=== PATIENT | female | born 1980 | race Caucasian/White ===

== ENCOUNTER 2016-08-16 20:45 | Emergency (ER) | payer MEDICARE, OTHER ==
[~2016-08-16] VITALS: Ht 165.1 cm; Wt 54.4 kg
[~2016-08-16 20:45] MED LIST: NO MEDS
[2016-08-16] MEDS ORDERED: WATER FOR INJECTION,STERILE 10 ML ONE (21:44)
[2016-08-16] MEDS ORDERED: OLANZAPINE 10 MG VIAL IM ONE ×2 (21:44→22:00)
[2016-08-16 21:46] LABS: BASOPHILS # (AUTO) 0.4 /CMM (0.0-0.2); BASOPHILS % (AUTO) 4.5 % (0.0-2.0); DIFF TOTAL % 100 %; EOSINOPHILS % (AUTO) 0.4 % (0.0-6.0); HEMATOCRIT 37 % (33-45); HEMOGLOBIN 12.6 g/dL (11.5-14.8); LYMPHOCYTES % (AUTO) 33.3 % (20.0-44.0); MEAN CORPUSCULAR HEMOGLOBIN 29 PG (26.0-33.0); MEAN CORPUSCULAR HGB CONC 34 g/dl (31.0-36.0); MEAN CORPUSCULAR VOLUME 83 fL (82-100); MONOCYTES # (AUTO) 0.7 /CMM (0.1-1.30); MONOCYTES % (AUTO) 7.8 % (2.0-12.0); PLATELET COUNT (AUTO) 251 /CMM (150-450); WHITE BLOOD COUNT (AUTO) 9.1 K/uL (4.3-11.0)
[2016-08-16 22:05] LABS: KETONES,URINE Negative (NEGATIVE); LEUKOCYTE ESTERASE ,URINE Negative (NEGATIVE)
[2016-08-16 22:09] LABS: ADD UA MICROSCOPIC YES
[2016-08-16 22:13] LABS: ADD URINE CULTURE NO; WBC,URINE 0-2 /HPF (0-3)
[2016-08-16 22:21] LABS: CANNABINOID, URINE POSITIVE (NEGATIVE); PHENCYCLIDINE SCREEN,URINE NEGATIVE (NEGATIVE)
[2016-08-16 22:31] LABS: CALCIUM, SERUM 8.2 mg/dL (8.5-10.1); CREATININE 0.7 mg/dL (0.6-1.3); POTASSIUM 3.5 mmol/L (3.5-5.1)
[2016-08-16 22:37] LABS: ALBUMIN 3.5 g/dL (3.4-5.0); BILIRUBIN,TOTAL 0.1 mg/dL (0.2-1.0)
[2016-08-16 22:38] LABS: INDIRECT BILIRUBIN 0.1 mg/dL (0.0-1.1)
[2016-08-17 04:51] VITALS: BP 102/51
== END 2016-08-17 05:50 | disposition home or self-care (01) ==
LOC: ER 20:52
DX: F10.10 Alcohol abuse, uncomplicated (principal); F12.10 Cannabis abuse, uncomplicated; R45.1 Restlessness and agitation; F25.9 Schizoaffective disorder, unspecified; F17.200 Nicotine dependence, unspecified, uncomplicated; Z88.8 Allergy status to other drugs, medicaments and biological substances
CPT/HCPCS: 36415; 70450-TC; 80048-TC; 80076-TC; 80305; 81000-TC; 84703-TC; 85025-TC; A4606; G6038-TC; G6039-TC; G6040-TC; J3490; Z7610

== ENCOUNTER 2016-08-18 22:59 | Emergency (ER) | payer MEDICARE, OTHER ==
[~2016-08-18] VITALS: Ht 165.1 cm; Wt 56.7 kg
[2016-08-18] MEDS ORDERED: OLANZAPINE 10 MG VIAL IM ONE ×2 (23:15→23:30)
[2016-08-18] MEDS ORDERED: WATER FOR INJECTION,STERILE 10 ML ONE (23:15)
[2016-08-18 23:29] LABS: BASOPHILS % (AUTO) 0.2 % (0.0-2.0); DIFF TOTAL % 100 %; EOSINOPHILS % (AUTO) 0.3 % (0.0-6.0); HEMATOCRIT 40 % (33-45); HEMOGLOBIN 13.2 g/dL (11.5-14.8); LYMPHOCYTES # (AUTO) 3.6 /CMM (0.8-4.8); LYMPHOCYTES % (AUTO) 27.3 % (20.0-44.0); MEAN CORPUSCULAR HEMOGLOBIN 28 PG (26.0-33.0); MEAN CORPUSCULAR HGB CONC 33 g/dl (31.0-36.0); MEAN CORPUSCULAR VOLUME 84 fL (82-100); MONOCYTES # (AUTO) 0.8 /CMM (0.1-1.30); MONOCYTES % (AUTO) 5.8 % (2.0-12.0); NEUTROPHILS # (AUTO) 8.8 /CMM (1.8-8.9); NEUTROPHILS % (AUTO) 66.4 % (43.0-81.0); PLATELET COUNT (AUTO) 289 /CMM (150-450); RED BLOOD CELL COUNT(AUTO) 4.72 MIL/uL (4.0-5.2); WHITE BLOOD COUNT (AUTO) 13.3 K/uL (4.3-11.0)
[2016-08-18 23:40] LABS: CALCIUM, SERUM 8.4 mg/dL (8.5-10.1); CREATININE 0.6 mg/dL (0.6-1.3); POTASSIUM 3.3 mmol/L (3.5-5.1)
[2016-08-18 23:45] LABS: ALBUMIN 3.6 g/dL (3.4-5.0); BILIRUBIN,TOTAL 0.2 mg/dL (0.2-1.0); TOTAL PROTEIN, SERUM 7.2 g/dL (6.4-8.2)
[2016-08-18 23:46] LABS: INDIRECT BILIRUBIN 0.2 mg/dL (0.0-1.1)
[2016-08-19 06:06] VITALS: BP 135/72
== END 2016-08-19 06:07 | disposition home or self-care (01) ==
LOC: ER 23:00
DX: R46.89 Other symptoms and signs involving appearance and behavior (principal); F10.129 Alcohol abuse with intoxication, unspecified; F25.9 Schizoaffective disorder, unspecified; F17.200 Nicotine dependence, unspecified, uncomplicated; Z88.8 Allergy status to other drugs, medicaments and biological substances
CPT/HCPCS: 36415; 80048-TC; 80076-TC; 85025-TC; A4606; G0480; G6039-TC; J3490; Z7610

== ENCOUNTER 2016-09-14 15:13 | Emergency (ER) | payer SELFPAY ==
[~2016-09-14] VITALS: Ht 157.5 cm; Wt 63.5 kg
[2016-09-14] MEDS ORDERED: WATER FOR INJECTION,STERILE 10 ML ONE (15:16)
[2016-09-14] MEDS ORDERED: OLANZAPINE 10 MG VIAL IM ONE ×2 (15:16→15:30)
[2016-09-14] MEDS ORDERED: IV NS 0.9% 1,000 ML BAG IV ONE (15:30)
[2016-09-14 15:44] LABS: BASOPHILS # (AUTO) 0.1 /CMM (0.0-0.2); DIFF TOTAL % 100 %; EOSINOPHILS # (AUTO) 0.4 /CMM (0.0-0.7); EOSINOPHILS % (AUTO) 3.7 % (0.0-6.0); HEMATOCRIT 38 % (33-45); HEMOGLOBIN 12.9 g/dL (11.5-14.8); LYMPHOCYTES # (AUTO) 3.5 /CMM (0.8-4.8); LYMPHOCYTES % (AUTO) 33.1 % (20.0-44.0); MEAN CORPUSCULAR HEMOGLOBIN 29 PG (26.0-33.0); MEAN CORPUSCULAR HGB CONC 34 g/dl (31.0-36.0); MEAN CORPUSCULAR VOLUME 86 fL (82-100); MONOCYTES # (AUTO) 0.5 /CMM (0.1-1.30); MONOCYTES % (AUTO) 5.2 % (2.0-12.0); NEUTROPHILS # (AUTO) 6.1 /CMM (1.8-8.9); PLATELET COUNT (AUTO) 310 /CMM (150-450); RED BLOOD CELL COUNT(AUTO) 4.45 MIL/uL (4.0-5.2); WHITE BLOOD COUNT (AUTO) 10.6 K/uL (4.3-11.0)
[2016-09-14 15:54] LABS: CALCIUM, SERUM 8.5 mg/dL (8.5-10.1); CREATININE 0.8 mg/dL (0.6-1.3); POTASSIUM 3.6 mmol/L (3.5-5.1)
[2016-09-14] MEDS ORDERED: IV NS 0.9% 1,000 ML ONE (16:11)
[2016-09-14] MEDS ORDERED: IV SET PRIMARY 1 EA INFUS.SET MC ONE (16:11)
[2016-09-14 18:49] VITALS: BP 110/63
== END 2016-09-14 18:51 | disposition home or self-care (01) ==
LOC: EDBD → MERGE 15:13 → ER 15:13
DX: R45.1 Restlessness and agitation (principal)
CPT/HCPCS: 36415; 80048; 85025; 93005; 96360; 96372; 99285; A4606; G0480; J3490; J7030; Z7610

== ENCOUNTER 2016-09-15 11:14 | Emergency (ER) | payer MEDICARE, OTHER ==
[~2016-09-15] VITALS: Ht 165.1 cm; Wt 65.8 kg
[2016-09-15] MEDS ORDERED: HALOPERIDOL LACTATE INJ 5 MG/ML VIAL ONE (11:27)
[2016-09-15] MEDS ORDERED: diphenhydrAMINE HCL 50 MG/ML VIAL ONE (11:27)
[2016-09-15] MEDS ORDERED: LORAZEPAM INJ 2 MG/ML VIAL ONE (11:27)
[2016-09-15] MEDS ORDERED: HALOPERIDOL LACTATE INJ 5 MG/ML VIAL IM ONE (11:30)
[2016-09-15] MEDS ORDERED: diphenhydrAMINE HCL 50 MG/ML VIAL IM ONE (11:30)
[2016-09-15] MEDS ORDERED: LORAZEPAM INJ 2 MG/ML VIAL IM ONE (11:30)
[2016-09-15 12:18] LABS: BASOPHILS # (AUTO) 0.1 /CMM (0.0-0.2); BASOPHILS % (AUTO) 0.8 % (0.0-2.0); DIFF TOTAL % 100 %; EOSINOPHILS # (AUTO) 0.2 /CMM (0.0-0.7); EOSINOPHILS % (AUTO) 1.9 % (0.0-6.0); HEMATOCRIT 42 % (33-45); HEMOGLOBIN 13.9 g/dL (11.5-14.8); LYMPHOCYTES # (AUTO) 3.5 /CMM (0.8-4.8); LYMPHOCYTES % (AUTO) 29.8 % (20.0-44.0); MEAN CORPUSCULAR HEMOGLOBIN 28 PG (26.0-33.0); MEAN CORPUSCULAR HGB CONC 33 g/dl (31.0-36.0); MEAN CORPUSCULAR VOLUME 86 fL (82-100); MONOCYTES # (AUTO) 0.5 /CMM (0.1-1.30); MONOCYTES % (AUTO) 4.4 % (2.0-12.0); NEUTROPHILS # (AUTO) 7.5 /CMM (1.8-8.9); NEUTROPHILS % (AUTO) 63.1 % (43.0-81.0); PLATELET COUNT (AUTO) 328 /CMM (150-450); RED BLOOD CELL COUNT(AUTO) 4.89 MIL/uL (4.0-5.2); WHITE BLOOD COUNT (AUTO) 11.8 K/uL (4.3-11.0)
[2016-09-15 12:25] LABS: CALCIUM, SERUM 8.8 mg/dL (8.5-10.1); CREATININE 0.7 mg/dL (0.6-1.3); POTASSIUM 3.8 mmol/L (3.5-5.1)
[2016-09-15 12:31] LABS: BILIRUBIN,DIRECT 0.1 mg/dL (0.0-0.2); BILIRUBIN,TOTAL 0.3 mg/dL (0.2-1.0); INDIRECT BILIRUBIN 0.2 mg/dL (0.0-1.1); SALICYLATE 4.1 mg/dL (2.8-20.0); TOTAL PROTEIN, SERUM 7.7 g/dL (6.4-8.2)
[2016-09-15 13:33] VITALS: BP 132/78
== END 2016-09-15 13:33 ==
LOC: ER 11:15
DX: F32.9 Major depressive disorder, single episode, unspecified (principal); F17.210 Nicotine dependence, cigarettes, uncomplicated; Z88.5 Allergy status to narcotic agent
CPT/HCPCS: 36415; 80048; 80076; 80329; 85025; 96372 ×3; 99284; A4606; G0480 ×2; J1200; J1630; J2060; G6039-TC; Z7610

== ENCOUNTER 2016-09-15 14:46 | Emergency (ER) | payer MEDICARE, OTHER ==
[~2016-09-15] VITALS: Ht 162.6 cm; Wt 65.8 kg
[2016-09-15 14:53] VITALS: BP 143/74
== END 2016-09-15 15:18 ==
LOC: ER 14:48
DX: Z00.8 Encounter for other general examination (principal); F17.200 Nicotine dependence, unspecified, uncomplicated; F25.9 Schizoaffective disorder, unspecified; Z88.8 Allergy status to other drugs, medicaments and biological substances
CPT/HCPCS: 99283; A4606; Z7610

== ENCOUNTER 2017-09-24 12:16 | Emergency (ER) | payer MEDICARE, OTHER ==
[~2017-09-24] VITALS: Ht 165.1 cm; Wt 65.8 kg
[2017-09-24] MEDS ORDERED: diphenhydrAMINE HCL 50 MG/ML VIAL ONE (12:28)
[2017-09-24] MEDS ORDERED: HALOPERIDOL LACTATE INJ 5 MG/ML VIAL ONE (12:28)
[2017-09-24] MEDS ORDERED: HALOPERIDOL LACTATE INJ 5 MG/ML VIAL IM ONE (12:30)
[2017-09-24] MEDS ORDERED: diphenhydrAMINE HCL 50 MG/ML VIAL IM ONE (12:30)
--- NOTE | 2017-09-24 12:35 | NUR ---
[id number]: ETOH INTOXICATED, AGGRESSIVE AND PSYCHOTIC BEHAVIOR. RESP IS EVEN AND UNLABORED WITH NAD NOTED. SKIN IS WARM AND DRY. MARTINA REYES VERBALLY ORDERED RESTRAINTS. AWAITING MD FOR EVAL.
[2017-09-24] MEDS ORDERED: IV NS 0.9% 1,000 ML BAG IV ONE (13:00)
[2017-09-24] MEDS ORDERED: DEXTROSE 50%-WATER 50 ML DISP.SYRIN IVP ONE (13:00)
[2017-09-24] MEDS ORDERED: DEXTROSE 50%-WATER 50 ML DISP.SYRIN ONE (13:05)
--- NOTE | 2017-09-24 13:30 | NUR ---
Patient is resting comfortably in bed with eyes closed. Easily aroused. VSS
--- NOTE | 2017-09-24 14:25 | NUR ---
Patient is resting comfortably in bed with eyes closed. Easily aroused. VSS
--- NOTE | 2017-09-24 14:26 | NUR ---
PATIENT IS STILL AGGRESSIVE.
--- NOTE | 2017-09-24 15:30 | NUR ---
Patient is resting comfortably in bed with eyes closed. Easily aroused. VSS
--- NOTE | 2017-09-24 16:30 | NUR ---
PATIENT IS AWAKE, AND STATES THAT SHE IS DENIES SI/HI. PROVIDED ORANGE JUICE AND WARM BLANKET FOR COMFORT.
--- NOTE | 2017-09-24 16:40 | NUR ---
Rogers was DC by CAIT Dominique.
--- NOTE | 2017-09-24 16:42 | NUR ---
PROVIDED SANDWICH AT .
--- NOTE | 2017-09-24 16:45 | NUR ---
IV removed. Catheter intact and site benign. Pressure and 4x4 applied to site. No bleeding noted.
[2017-09-24 16:50] VITALS: BP 116/72
--- NOTE | 2017-09-24 16:50 | NUR ---
Patient discharged to home in stable condition. Written and verbal after care instructions given. Patient verbalizes understanding of instruction. Patient ambulates with stable gait. AAOX3.
== END 2017-09-24 16:50 | disposition home or self-care (01) ==
LOC: ER 12:18
DX: F10.129 Alcohol abuse with intoxication, unspecified (principal); E16.2 Hypoglycemia, unspecified; F25.9 Schizoaffective disorder, unspecified; R45.1 Restlessness and agitation; Z72.0 Tobacco use; F17.200 Nicotine dependence, unspecified, uncomplicated; Z88.8 Allergy status to other drugs, medicaments and biological substances
CPT/HCPCS: 82962-TC; A4606; J1200; J1630; J7030; Z7610